=== PATIENT | female | born 1990 | race Caucasian/White ===

== ENCOUNTER 2020-04-03 16:33 | Outpatient (CLI) | payer BC, SELFPAY ==
--- NOTE | ~2020-04-03 | US_ITS ---
US OB /maternal detail DATE: 04/03/2020 17:33 INDICATION: screening for malformations TECHNIQUE: Real-time imaging and Doppler analysis COMPARISON: None FINDINGS: Live quiroga intrauterine gestation, fetus in longitudinal lie, breech presentation. The placenta is posterior. The lower placental margin is at the internal os. Subjectively normal amount of amniotic fluid. No evidence of cerebral ventriculomegaly. The cerebellum appears normal. Normal cervical nuchal fold. Four-chamber heart. heart rate of 141 bpm. The left and right ventricular outflow tracts are unremarkable. The kidneys appear normal; no hydronephrosis. Fluid is demonstrated in the stomach and ur inary bladder. The diaphragm is intact. spine appears normal. male external genitalia. Biparietal diameter 4.12 cm; 18 weeks 3 days Head circumference 15.44 cm; 18 weeks 3 days Abdominal circumference 13.39 cm; 18 weeks 6 days Femur length 2.95 cm; 19 weeks 1 day Composite age by Hadlock formula is 18 weeks 5 days +/- 1 week 2 days. PRESLEY by ultrasound is 08/30/2020, comparable to the PRESLEY determined by LMP. Estimated weight is 263.1 +/- 30 9.5 g. Head circumference/abdominal circumference is 1.15, within normal range of 1.09, 1.26 Femur length/head circumference is 19.08, slightly above normal range of 16.01-18.21. IMPRESSION: Relatively low-lying posterior placenta, which will likely resolve with advancement of th e Breech presentation Composite age by Hadlock formula is 18 weeks 5 days +/- 1 week 2 days; PRESLEY is 08/30/2020 Normal anatomy screen Reviewed, dictated and finalized at [facility]. Reviewed, dictated and finalized at [facility]. TECH IMPRESSION: Relatively low-lying posterior placenta, which will likely resolve with advancement of the Breech presentation Composite age by Hadlock formula is 18 weeks 5 days +/- 1 week 2 days; PRESLEY is Normal anatomy screen
== END 2020-04-03 16:34 | disposition home or self-care (01) ==
PROVIDERS: Visit Provider Obstetrics & Gynecology
DX: Z36.9 Encounter for antenatal screening, unspecified (principal); Z3A.18 18 weeks gestation of pregnancy
CPT/HCPCS: 76805

== ENCOUNTER 2020-05-22 10:52 | Outpatient (CLI) | payer BC, SELFPAY ==
--- NOTE | ~2020-05-22 | US_ITS ---
EXAMINATION: US OB follow up DATE: 05/22/2020 11:27 INDICATION: Assess placental position and growth, second trimester TECHNIQUE: Real-time ultrasound of the pelvis was performed. The interpreting radiologist was not pre sent for the study. COMPARISON: None. FINDINGS: There is a single living fetus in vertex presentation. The placenta is posterior and 6 mm f rom the internal cervical os. cardiac activity and movement are noted. heart rate i s 133 beats per minute (bpm). The amniotic fluid index is subjectively normal. The following biometric data were obtained: Biparietal diameter (BPD): 6.4 cm; head circumference (HC): 24.3 cm; abdominal circumference (AC): 22 .7 cm; femur length (FL): 4.8 cm. These measurements are concordant. Estimated weight is 974 g +/- 146 g, which correlates with the 81st percentile when 08/30/2020 is used as estimated date of delivery. As single measurements, these parameters are each equal to the following estimated gestational ages w ith ranges of +/- 2 standard deviations: BPD: 26 weeks 1 days +/- 2 weeks 1 days. HC: 26 weeks 3 days +/- 2 weeks 0 days. AC: 27 weeks 1 days +/- 2 weeks 1 days. FL: 26 weeks 2 days +/- 2 weeks 1 days. estimated gestational age based solely on measurements from this exam is 26 weeks 4 days +/- 1 weeks 6 days. IMPRESSION: 1. Single living fetus in vertex presentation. 2. Marginal placenta previa. 3. Estimated weight is 974 g +/- 146 g, which correlates with the 81st percentile when 08/30/2020 is used as estimated date of delivery. Reviewed, dictated and finalized at location [facility]. [place] RECEIVING CLERK IMPRESSION: 1. Single living fetus in vertex presentation. 2. Marginal placenta previa. 3. Estimated weight is 974 g +/- 146 g, which correlates with the 81st pe rcentile when 08/30/2020 is used as estimated date of delivery.
== END 2020-05-22 10:53 | disposition home or self-care (01) ==
PROVIDERS: Visit Provider Obstetrics & Gynecology
DX: Z36.9 Encounter for antenatal screening, unspecified (principal); Z3A.26 26 weeks gestation of pregnancy
CPT/HCPCS: 76816

== ENCOUNTER 2020-07-05 15:40 | Outpatient (CLI) | payer BC, SELFPAY ==
--- NOTE | ~2020-07-05 | US_ITS ---
EXAMINATION: US OB follow up DATE: 07/05/2020 16:47 INDICATION: Placenta previa. Assess growth and placental positioning. TECHNIQUE: Real-time ultrasound of the pelvis was performed. The interpreting radiologist was not pre sent for the study. COMPARISON: None. FINDINGS: There is a single living fetus in vertex presentation. The placenta is posterior and not low-lying w ith greater than >5 cm the obscured caudal margin of the placenta in the internal cervical os which abuts the head. The cervix measures >3.6 cm however the external cervical os is exclu ded from the [id number]. No funneling. heart rate is 147 beats per minute (bpm). The amnioti c fluid volume appears subjectively normal. The following biometric data were obtained: BPD: 8.1 cm -> 32 weeks 3 days Head circumference: 28.3 cm -> 31 weeks 0 days Abdominal circumference: 28.1 cm -> 32 weeks 1 days Femur length: 6.1 cm -> 31 weeks 4 days These measurements are concordant. Head circumference to abdominal circumference ratio: 1.01 (normal range 0.96-1.14). Estimated weight: 1858 g (+/-) 279 g. or 4 lbs. 2 oz. (+/-) 10 oz. IMPRESSION: 1. Single living fetus in vertex presentation with heart rate of 147 bpm. 2. Posterior placenta which does not appear low-lying. 3. Estimated weight is 35th percentile by Hadlock criteria when 08/30/2020 is used as the estimat ed date of delivery (PRESLEY). Please correlate with clinical information or earlier ultrasounds for most accurate PRELSEY. Reviewed, dictated and finalized at location [facility]. [place] HANDLER IMPRESSION: 1. Single living fetus in vertex presentation with heart rate of 147 bpm. 2. Posterior placenta which does not appear low-lying. 3. Estimated weight is 35th percentile by Hadlock criteria when 08/30/2020 is used as the estimated date of delivery (PRESLEY). Please correlate with clinical information or earlier ultrasounds for most accurate PRESLEY.
== END 2020-07-05 15:41 | disposition home or self-care (01) ==
PROVIDERS: Visit Provider Obstetrics & Gynecology
DX: O44.20 Partial placenta previa NOS or without hemorrhage, unspecified trimester (principal); Z3A.00 Weeks of gestation of pregnancy not specified
CPT/HCPCS: 76816

== ENCOUNTER 2020-08-18 06:10 | Inpatient (IN) | payer BC, SELFPAY ==
[2020-08-18] VITALS (179 sets, daily range): BP systolic 87–163; BP diastolic 43–136; PULSE 57–161; TEMP 36.6–37.7; O2SAT 92–100; BMI 34.3
[2020-08-18] MEDS: LACTATED RINGERS 1,000 ML 125 ML IV CONT ×2 (06:55→16:55)
[2020-08-18 07:10] LABS: Basophils Percent Auto 0.3 % (0.2-1.2); Eosinophils Percent Auto 0.5 % (0-4.4); Hematocrit 37.9 % (37.0-47.0); Immature Granulocyte Absolute 0.07 K/mm3 (0.00-0.031); Immature Granulocyte Percent A 0.8 % (0-0.5); Lymphocytes Absolute Auto 1.69 K/mm3 (0.9-3.2); Lymphocytes Percent Auto 19.5 % (18.3-44.2); Mean Corpuscular HGB Conc 34.3 g/dl (32-36); Mean Corpuscular Hemoglobin 30.4 pg (26-34); Mean Corpuscular Volume 88.6 fl (80-100); Mean Platelet Volume 11.3 fl (7.4-10.4); Monocytes Absolute Auto 0.5 K/mm3 (0.1-0.6); Monocytes Percent Auto 5.7 % (2.6-8.5); Neutrophils Absolute Auto 6.3 K/mm3 (1.3-6.7); Neutrophils Percent Auto 73.2 % (45.5-73.1); Platelet Count Result 217 k/mm3 (150-375); Red Blood Count 4.28 M/mm3 (4.2-5.4); Red Cell Distribution Width 12.8 % (11.5-14.5); White Blood Count 8.7 K/mm3 (4.5-10.0)
--- NOTE | 2020-08-18 07:12 | WPDANESEPP ---
Anes - Eval Pre Procedure Procedure: labor epidural Date/Time: 08/18/20 07:12 Preop Diagnosis: labor pain Pre Op Diagnosis: Induction of Labor Patient Data Age: 30 Gender: F Height: Weight: Last Vital Signs Pulse 88 08/18/20 07:00 BP 117/79 08/18/20 07:00 Allergies Allergy/AdvReac Type Severity Reaction Status Date / Time No Known Allergies Allergy Verified 08/18/20 07:07 Laboratory Tests 08/18/20 08/18/20 08/18/20 06:52 06:52 06:52 WBC 8.7 K/mm3 K/mm3 (4.5-10.0) RBC 4.28 M/mm3 M/mm3 (4.2-5.4) Hgb 13.0 g/dL g/dL (12.0-15.0) Hct 37.9 % % (37.0-47.0) MCV 88.6 fl fl (80-100) MCH 30.4 pg pg (26-34) MCHC 34.3 g/dl g/dl (32-36) RDW 12.8 % % (11.5-14.5) Plt Count 217 k/mm3 k/mm3 (150-375) MPV 11.3 fl H fl (7.4-10.4) Immature Gran % (Auto) 0.8 % H % (0-0.5) Neut % (Auto) 73.2 % H % (45.5-73.1) Lymph % (Auto) 19.5 % % (18.3-44.2) [place] % (Auto) 5.7 % % (2.6-8.5) Eos % (Auto) 0.5 % % (0-4.4) Baso % (Auto) 0.3 % % (0.2-1.2) Lymph # (Auto) 1.69 K/mm3 K/mm3 (0.9-3.2) [place] # (Auto) 0.5 K/mm3 K/mm3 (0.1-0.6) Eos # (Auto) 0.0 K/mm3 K/mm3 (0-0.3) Baso # (Auto) 0.0 K/mm3 K/mm3 (0.0-0.1) Abs Immat Gran (auto) 0.07 K/mm3 H K/mm3 (0.00-0.031) Absolute Neuts (auto) 6.3 K/mm3 K/mm3 (1.3-6.7) Absolute Nucleated RBC 0.0 K/mm3 K/mm3 (0.0-0.012) Nucleated RBC % 0.0 % % (0.0-0.2) Sodium Potassium Chloride Carbon Dioxide Anion Gap BUN Creatinine Estim Creat Clear Calc Estimated GFR Glucose Uric Acid Calcium Total Bilirubin AST ALT Alkaline Phosphatase Total Protein Albumin RPR Pending HIV 1&2 Ab/P24 Ag 4thGn Pending 08/18/20 06:52 WBC RBC Hgb Hct MCV MCH MCHC RDW Plt Count MPV Immature Gran % (Auto) Neut % (Auto) Lymph % (Auto) [place] % (Auto) Eos % (Auto) Baso % (Auto) Lymph # (Auto) [place] # (Auto) Eos # (Auto) Baso # (Auto) Abs Immat Gran (auto) Absolute Neuts (auto) Absolute Nucleated RBC Nucleated RBC % Sodium Pending Potassium Pending Chloride Pending Carbon Dioxide Pending Anion Gap Pending BUN Pending Creatinine Pending Estim Creat Clear Calc Pending Estimated GFR Pending Glucose Pending Uric Acid Pending Calcium Pending Total Bilirubin Pending AST Pending ALT Pending Alkaline Phosphatase Pending Total Protein Pending Albumin Pending RPR HIV 1&2 Ab/P24 Ag 4thGn Patient hx anesthesia problems: none Family hx anesthesia problems: none PMFSH Surgical History Surgical History 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
--- NOTE | 2020-08-18 07:15 | LDADM ---
This patient, Rose Mary yLnch, was admitted to Labor/Delivery/Recovery 103 on 08/18/20 at 06:10. Plans for labor, pain management and were discussed with patient. Patient/family oriented to hospital policies and general routines including ID bracelet, bed and alarms, visiting hours, pain management, procedures, bathroom and other care routines, personal items, smoking policy, room service/diet and guest tray routines, security routines, call light, and visiting hours. Patient/Family are encouraged to report perceived risks to care and to ask questions if they do not understand what they are told or what they should do. See OBIX for further documentation.
[2020-08-18 07:18] LABS: Albumin Level 3.6 g/dL (3.5-5.1); Alkaline Phosphatase 190 U/L (38-126); Anion Gap 10 mmol/L (8-16); Aspartate Amino Transferase 45 U/L (14-36); Bilirubin,Total 0.2 mg/dL (0.2-1.3); Blood Urea Nitrogen 12 mg/dL (7-17); Calcium 8.8 mg/dL (8.4-10.2); Carbon Dioxide 20 mmol/L (22-30); Chloride 107 mmol/L (98-107); Estimated Glomerular Filt Rate > 60; Glucose 136 mg/dL (65-105); Potassium 3.4 mmol/L (3.4-5.0); Sodium 137 mmol/L (137-145); Uric Acid 3.5 mg/dL (2.5-7.5)
[2020-08-18 07:26] LABS: Alanine Aminotransferase 49 U/L (4-35)
[2020-08-18] MEDS: OXYTOCIN 30 UNITS/NS 500 ML 30 UNITS/500 ML BAG IV CONT (07:36)
[2020-08-18 07:58] LABS: HIV 1/2 Ab P24 Ag Result Negative (Negative)
--- NOTE | 2020-08-18 08:04 | PM.IMHP ---
H&P: HPI History of Present Illness Date/Time: 08/18/20 08:04 30 y/o G1 at 38+2 with gestational HTN here for induction of labor. No RIVERA/visual changes. 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 Family History Family History Mother Breast cancer Hypertension Other Breast cancer Father Hypertension Hyperlipidemia Social History Social History Smoking status: Never smoker Alcohol intake: never Substance use: never Gender identity (if verbalized by the patient): Female Spiritual care concerns: No Meds Home Medications and Allergies Home Medications Medication Instructions Recorded Confirmed Type PNV cmb#95-ferrous fumarate-FA 1 tablet PO DAILY 08/18/20 08/18/20 History [] Allergies Allergy/AdvReac Type Severity Reaction Status Date / Time No Known Allergies Allergy Verified 08/18/20 07:07 Vital Signs Vital Signs - 24 hr 08/18/20 06:36 08/18/20 06:53 08/18/20 07:00 Pulse Rate 102 H 94 88 Blood Pressure 139/82 126/85 117/79 08/18/20 07:30 08/18/20 08:00 Pulse Rate 87 86 Blood Pressure 119/73 113/74 Exam Const: General: healthy appearing, no acute distress, alert and awake Resp: Auscultation: clear to auscultation bilaterally Cardio: Rate: regular rate Rhythm: regular rhythm GI: Inspection: non-distended GI Palp: Yes Soft to palpation and No Tenderness to palpation present (GI) : Manual OB Exam: dilated 1 cm, effaced 25%, station -2 and other (soft/posterior) Extrem: General: no calf tenderness and edema bilateral (1+) Psych: Mental Status: mental status grossly normal H&P: Results Labs Labs: Short CBC 08/18/20 Range/Units 06:52 WBC 8.7 (4.5-10.0) K/mm3 Hgb 13.0 (12.0-15.0) g/dL Hct 37.9 (37.0-47.0) % Plt Count 217 (150-375) k/mm3 BMP 08/18/20 06:52 Sodium 137 Potassium 3.4 Chloride 107 Carbon Dioxide 20 L BUN 12 Creatinine 0.60 L Glucose 136 H Calcium 8.8 Liver Function 08/18/20 Range/Units 06:52 Total Bilirubin 0.2 (0.2-1.3) mg/dL AST 45 H (14-36) U/L ALT 49 H (4-35) U/L Alkaline Phosphatase 190 H (38-126) U/L Albumin 3.6 (3.5-5.1) g/dL Assessment and Plan Assessment and plan (1) Gestational hypertension: Code(s): O13.9 - Gestational [-induced] hypertension without significant proteinuria, unspecified trimester Status: Acute Assessment and Plan: Asymptomatic. BP normal to mildly elevated. Labs all normal except mildly elevated LFTs (not diagnostic for pre-E). Observe BP and symptoms closely. Continue pitocin. GBS negative
--- NOTE | 2020-08-18 11:56 | PM.OBPNLAB ---
Pain Control Date/time seen: 08/18/20 11:56 Pain control: tolerating well Pelvic Exam Dilation (cm): 3 Effacement (%): 50 station: -2 Amniotic membrane status: Ruptured Comments: AROM with clear fluid Contractions Monitor mode: Internal (IUPC just placed) Contraction frequency: 2 Contraction intensity: Mild Status status: Category ll Assessment and Plan Assessment: induction ongoing Plan: continuous present management
[2020-08-18 12:01] LABS: Rapid Plasma Reagin Non-Reactive (NonReactive)
--- NOTE | 2020-08-18 15:45 | PM.OBPNLAB ---
Pain Control Date/time seen: 08/18/20 15:45 Pain control: epidural Pelvic Exam Dilation (cm): 4 Effacement (%): 95 station: -1 Amniotic membrane status: Ruptured Contractions Monitor mode: Internal (IUPC just placed) Contraction frequency: 4 Contraction pattern: Regular Contraction intensity: Moderate Intrauterine tone measurement: 190 (at highest prior to pitocin shut off) Status status: Category ll Assessment and Plan Pitocin rate (mU/min): 0 Assessment: induction ongoing Plan: other (Restart pitocin now. Watch FHT closely)
[2020-08-18] MEDS: fentaNYL CITRATE INJ (*CRX) 100 MCG/2 ML VIAL 50 MCG IV PUSH (19:04)
[2020-08-19] VITALS (62 sets, daily range): BP systolic 99–145; BP diastolic 53–108; PULSE 69–146; RESP 16–20; TEMP 36.6–38.4; O2SAT 95–100
[2020-08-19] MEDS: AMPICILLIN 2 GM/NS 100 ML 2 GM/100 ML BAG IVPB (01:15)
[2020-08-19] MEDS: LACTATED RINGERS 1,000 ML 125 ML IV CONT (01:40)
--- NOTE | 2020-08-19 02:12 | WPDHPUPDATE1 ---
History and Physical Update Update Date/Time: 08/19/20 02:12 History and Physical has been reviewed, including an updated exam of the patient. There are NO changes in the patient's condition. Risks, benefits, and alternatives have been discussed and questions answered. Patient agrees to proceed with procedure. She made it to complete dilation and pushed for 2 1/2 hours with little descent of head to -1 station. We had discussed in office and again this morning that operative vaginal delivery is not a good option due to concern of narrow pelvis. She agrees to proceed with primary c section due to arrest of descent.
[2020-08-19] MEDS: ceFAZolin 2 GM/D5W 50 ML 2 GM/50 ML BAG IVPB (02:14)
--- NOTE | 2020-08-19 02:15 | P.OP_ITS ---
Procedure Note - Detailed Date of procedure: 08/19/20 Pre-op diagnosis: Induction of Labor Arrest of descent Post-op diagnosis: same Procedure performed: Primary LTCS Description of procedure: She was taken to the operating room where her epidural anesthesia was found be adequate. She was prepared and draped in the normal sterile fashion in the dorsal supine position with a leftward tilt. A Pfannenstiel skin incision was made with a scalpel and extended to the underlying layer of fascia. The fascia was incised in the midline with a scalpel and extended laterally with the Quintanilla scissors. The underlying rectus muscles were dissected off bluntly and sharply. The rectus muscles were in the midline, and the peritoneum was entered sharply. Peritoneal incision was extended inferiorly and superiorly with good visualization of the bladder. The bladder blade was inserted. The vesicouterine peritoneum was tented up and entered sharply with Metzenbaum scissors. The bladder flap was created sharply. The bladder blade was reinserted. The lower uterine segment was incised in a transverse fashion with the scalpel. The incision was digitally stretched in a cephalocaudal direction. The infant's head was delivered atraumatically. A nuchal cord x1 was reduced easily. The shoulders and body were delivered easily. The cord was clamped and cut. The was passed to the waiting nurse. Cord gas and cord blood was obtained. The placenta was manually extracted. The uterus was exteriorized and cleared of all clots and debris. The uterine incision was closed using 0 Vicryl in a running l ocked fashion. The uterus was then returned to the abdomen. The gutters were cleared of all clots and debris. The uterine incision was reinspected, and there was 1 bleeding point in the middle of the incision. That was easily controlled with an 0 Vicryl [id number] suture. The rectus muscles were then inspected. Any bleeding points were cauterized. Rectus muscles were reapproximated using an 0 Vicryl [id number] suture. The fascia was then closed using 0 Vicryl in a running fashion. The subcutaneous tissue was irrigated. Any bleeding points were cauterized. The skin was closed using Insorb absorbable leighton. She tolerated the procedure well. Sponge, lap, needle, and instrument counts were correct x2. She was taken to the recovery area in stable condition. Anesthesia: epidural Surgeon: Audra Milelr MD Estimated blood loss (mL): 490 Drains: Yes ([place]) Pathology: yes Complications: No immediate complications Condition: stable Disposition: floor Findings: Male infant, cephalic; Apgars 9/9; weight 6# 15oz; nuchal cord X 1; normal uterus, tubes, ovaries
--- NOTE | 2020-08-19 02:33 | WPDANESEPP ---
Anes - Eval Pre Procedure Procedure: Operation Date: 08/19/20 02:15 Proposed Procedures p Section - Audra Miller MD Date/Time: 08/19/20 02:33 Surgeon: karel Pre Op Diagnosis: Induction of Labor Patient Data Age: 30 Gender: F Height: 1.6 m Weight: 88 kg Last Vital Signs Temp 37.7 C H 08/18/20 22:35 Pulse 96 08/19/20 02:10 BP 108/58 L 08/19/20 02:10 Pulse Ox 99 08/18/20 22:57 Allergies Allergy/AdvReac Type Severity Reaction Status Date / Time No Known Allergies Allergy Verified 08/18/20 07:07 Home Medications Medication Instructions Recorded Confirmed Type PNV cmb#95-ferrous fumarate-FA 1 tablet PO DAILY 08/18/20 08/18/20 History [] Laboratory Tests 08/18/20 08/18/20 08/18/20 06:52 06:52 06:52 WBC 8.7 K/mm3 K/mm3 (4.5-10.0) RBC 4.28 M/mm3 M/mm3 (4.2-5.4) Hgb 13.0 g/dL g/dL (12.0-15.0) Hct 37.9 % % (37.0-47.0) MCV 88.6 fl fl (80-100) MCH 30.4 pg pg (26-34) MCHC 34.3 g/dl g/dl (32-36) RDW 12.8 % % (11.5-14.5) Plt Count 217 k/mm3 k/mm3 (150-375) MPV 11.3 fl H fl (7.4-10.4) Immature Gran % (Auto) 0.8 % H % (0-0.5) Neut % (Auto) 73.2 % H % (45.5-73.1) Lymph % (Auto) 19.5 % % (18.3-44.2) [place] % (Auto) 5.7 % % (2.6-8.5) Eos % (Auto) 0.5 % % (0-4.4) Baso % (Auto) 0.3 % % (0.2-1.2) Lymph # (Auto) 1.69 K/mm3 K/mm3 (0.9-3.2) [place] # (Auto) 0.5 K/mm3 K/mm3 (0.1-0.6) Eos # (Auto) 0.0 K/mm3 K/mm3 (0-0.3) Baso # (Auto) 0.0 K/mm3 K/mm3 (0.0-0.1) Abs Immat Gran (auto) 0.07 K/mm3 H K/mm3 (0.00-0.031) Absolute Neuts (auto) 6.3 K/mm3 K/mm3 (1.3-6.7) Absolute Nucleated RBC 0.0 K/mm3 K/mm3 (0.0-0.012) Nucleated RBC % 0.0 % % (0.0-0.2) Sodium Potassium Chloride Carbon Dioxide Anion Gap BUN Creatinine Estim Creat Clear Calc Estimated GFR Glucose Uric Acid Calcium Total Bilirubin AST ALT Alkaline Phosphatase Total Protein Albumin RPR Non-reactive (NonReactive) HIV 1&2 Ab/P24 Ag 4thGn Negative (Negative) Blood Type Antibody Screen 08/18/20 08/18/20 06:52 06:52 WBC RBC Hgb Hct MCV MCH MCHC RDW Plt Count MPV Immature Gran % (Auto) Neut % (Auto) Lymph % (Auto) [place] % (Auto) Eos % (Auto) Baso % (Auto) Lymph # (Auto) [place] # (Auto) Eos # (Auto) Baso # (Auto) Abs Immat Gran (auto) Absolute Neuts (auto) Absolute Nucleated RBC Nucleated RBC % Sodium 137 mmol/L mmol/L (137-145) Potassium 3.4 mmol/L mmol/L (3.4-5.0) Chloride 107 mmol/L mmol/L (98-107) Carbon Dioxide 20 mmol/L L mmol/L (22-30) Anion Gap 10 mmol/L mmol/L (8-16) BUN 12 mg/dL mg/dL (7-17) Creatinine 0.60 mg/dL L mg/dL (0.7-1.0) Estim Creat Clear Calc Not Reportable Estimated GFR > 60 (59 - ) Glucose 136 mg/dL H mg/dL (65-105) Uric Acid 3.5 mg/dL mg/dL (2.5-7.5) Calcium 8.8 mg/dL mg/dL (8.4-10.2) Total Bilirubin 0.2 mg/dL mg/dL (0.2-1.3) AST 45 U/L H U/L (14-36) ALT 49 U/L H U/L (4-35) Alkaline Phosphatase 190 U/L H U/L (38-126) Total Protein 7.0 g/dL g/dL (6.3-8.2) Albumin 3.6 g/dL g/dL (3.5-5.1) RPR HIV 1&2 Ab/P24 Ag 4thGn Blood Type A Positive Antibody Screen
[2020-08-19] MEDS: OXYTOCIN 30 UNITS/NS 500 ML 30 UNITS/500 ML BAG 125 UNITS IV CONT (05:16)
[2020-08-19] MEDS: KETOROLAC 30 MG/ML VIAL (*BKC) IV PUSH (05:16)
--- NOTE | 2020-08-19 05:33 | PC.NURSE ---
Patient transferred to post room #286 via stretcher. Support person present. Oriented to unit and room, and information board. Patient verbalizes understanding.
--- NOTE | 2020-08-19 08:00 | PC.NURSE ---
Pt introductions made and plan of care discussed per post op c section, pain management, breast feeding, daily care activities. welcome packet reviewed and discussed. PT verbalized understanding of such care.
[2020-08-19] MEDS: SIMETHICONE 80 MG TAB.CHEW PO ×2 (09:57→14:56)
[2020-08-19] MEDS: DOCUSATE SODIUM 100 MG CAPSULE PO ×2 (09:57→20:43)
[2020-08-19] MEDS: HYDROcodone/acetaminophen (*CRX) 5-325 MG TABLET 1 TAB PO ×3 (09:58→20:44)
[2020-08-19] MEDS: MULTIVIT/MIN/PREN/FOL AC/IRON TABLET 1 TAB PO (09:58)
--- NOTE | 2020-08-19 10:00 | PC.NURSE ---
PT received instructions per policy post c section via one to one discussion and mom baby care guide book. no barriers to learning observed. pt verbalized understanding of such care.
[2020-08-19] MEDS: DEXTROSE 5%/0.45% SOD CHL 1,000 ML 125 ML IV CONT (10:30)
[2020-08-19] MEDS: WITCH HAZEL 40 PADS 1 PAD TOPICAL (14:54)
[2020-08-19] MEDS: BENZOCAINE 20% AER SPR (*SP) 56 GM CAN 1 SPRAY TOPICAL (14:54)
[2020-08-19] MEDS: LANOLIN (LANSINOH) 7.5 GM CREAM 1 APPLIC TOPICAL (14:56)
[2020-08-19] MEDS: IBUPROFEN 600 MG TABLET PO ×2 (14:56→20:43)
[2020-08-19] MEDS: LORATADINE 10 MG TABLET PO (14:57)
--- NOTE | 2020-08-19 20:24 | PC.NURSE ---
1909: Patient, spouse and baby taken to employee break room due to Code [place] 1944: Patient, spouse and baby returned to room 286 without incident after ALL Clear was called.
[2020-08-20] VITALS: BP 98/57; PULSE 72; RESP 18; TEMP 36.4; O2SAT 97
[2020-08-20] MEDS: IBUPROFEN 600 MG TABLET PO ×4 (03:46→23:24)
[2020-08-20 05:03] LABS: Basophils Percent Auto 0.3 % (0.2-1.2); Eosinophils Absolute Auto 0.1 K/mm3 (0-0.3); Eosinophils Percent Auto 0.8 % (0-4.4); Hematocrit 31.1 % (37.0-47.0); Hemoglobin 10.2 g/dL (12.0-15.0); Immature Granulocyte Absolute 0.09 K/mm3 (0.00-0.031); Immature Granulocyte Percent A 0.7 % (0-0.5); Lymphocytes Absolute Auto 2.08 K/mm3 (0.9-3.2); Lymphocytes Percent Auto 15.6 % (18.3-44.2); Mean Corpuscular HGB Conc 32.8 g/dl (32-36); Mean Corpuscular Hemoglobin 29.9 pg (26-34); Mean Corpuscular Volume 91.2 fl (80-100); Mean Platelet Volume 11.3 fl (7.4-10.4); Monocytes Percent Auto 7.2 % (2.6-8.5); Neutrophils Absolute Auto 10.1 K/mm3 (1.3-6.7); Neutrophils Percent Auto 75.4 % (45.5-73.1); Platelet Count Result 177 k/mm3 (150-375); Red Blood Count 3.41 M/mm3 (4.2-5.4); Red Cell Distribution Width 13.6 % (11.5-14.5); White Blood Count 13.4 K/mm3 (4.5-10.0)
--- NOTE | 2020-08-20 07:00 | PC.NURSE ---
PT introductions made and plan of care discussed per post , pain management, breast feeding. daily care activities. PT Verbalized understanding of such care.
[2020-08-20 12:00] VITALS: BP 102/60; PULSE 84; RESP 18; RESP 20; TEMP 37; O2SAT 98
[2020-08-20] MEDS: ACETAMINOPHEN 325 MG TABLET 650 MG PO ×2 (12:05→17:40)
[2020-08-20] MEDS: SIMETHICONE 80 MG TAB.CHEW PO ×2 (12:06→17:40)
[2020-08-20] MEDS: MULTIVIT/MIN/PREN/FOL AC/IRON TABLET 1 TAB PO (12:07)
[2020-08-20] MEDS: DOCUSATE SODIUM 100 MG CAPSULE PO ×2 (12:07→17:39)
[2020-08-20 15:00] VITALS: BP 104/68; PULSE 80; RESP 18; TEMP 36.9; O2SAT 98
--- NOTE | 2020-08-20 16:37 | WPDANLDPN2 ---
Anes-Prog Note L&D Date/Time: 08/20/20 16:37 Comfortable throughout: labor and section Neuraxial method: epidural Epidural/Spinal procedure site: clean & non-tender Neuro status: Neuro function grossly intact. Cardiovascular status: normal Respiratory status: normal Airway patency: baseline Mental status: baseline Post-Op hydration status: normal Vital Signs: Last Vital Signs Temp 37.0 C 08/20/20 12:00 Pulse 84 08/20/20 12:00 Resp 20 08/20/20 12:00 BP 102/60 08/20/20 12:00 Pulse Ox 98 08/20/20 12:00 Pain score (VAS): 0/10. Patient resting in bed at time of assessment, appears comfortable. Support person at bedside. I/O: Intake & Output 08/20/20 08/20/20 08/20/20 07:59 15:59 23:59 Intake Total 900 600 Output Total 1400 500 Balance -500 100 Post-procedural complaints: none Patient feedback: Patient satisfied with anesthetic care.
--- NOTE | 2020-08-20 16:37 | WPDANLDNPN2 ---
Anes-Prog Note L&D-Neuraxial Date/Time: 08/20/20 16:37 Neuraxial medications: epidural PF morphine Opiod-related complaints: none Patient feedback: Patient satisfied with post-operative pain management.
[2020-08-20 18:46] VITALS: BP 119/66; PULSE 78; RESP 16; TEMP 37.2
[2020-08-21] MEDS: ACETAMINOPHEN 325 MG TABLET 650 MG PO ×2 (02:24→09:12)
[2020-08-21] MEDS: IBUPROFEN 600 MG TABLET PO ×2 (05:23→12:51)
--- NOTE | 2020-08-21 07:45 | PC.NURSE ---
Mother called out for assist with feeding. Consulted with patient, mother reports has fed well since , last night he became sleepy and has struggled with waking to feed since. It has no been 6 hours from last feeding. Mother has nipple discomfort with latch during first part of the feeding that quickly resolves. Reviewed nipple care of lanolin, warm compresses several times per day. Reviewed feeding cues, frequencies, duration of feedings, feeding elimination flow sheet, and signs of adequate intake. Demonstrated stimulation techniques to wake infant for feeding. Assisted with infant to breast. Reviewed positioning/alignment in football, holding breast in C hold and guided asymmetrical latch on. Several minutes of stimulation to wake . Small amounts of formula to tongue to assist with waking and illicit feeding cues. Infant was able to latch after several attempts. nursed eagerly, with steady draws and occasional swallowing noted for bursts followed by long pausing. Reviewed signs of a correct latch, effective nursing and suck swallow ratio. Infant was able to maintain latch. Mother reported tenderness at times, had slipped to shallow latch. Demonstrated how to adjust latch more deeply while feeding. Mother quickly reports she can feel is latched more deeply and has minimal tenderness. Advised to stimulate infant while feeding to keep awake and nursing effectively for increased stimulation and increased intake. Instructed mother to call out for RN assistance if she is unable to latch for feeding or she has discomfort with nursing. Discussed infant weight loss and jaundice levels. ICP will discuss after evaluation.
--- NOTE | 2020-08-21 08:15 | P.PNOB_ITS ---
OB - PN: Subj Subjective Date/time seen: 08/21/20 08:15 Patient comments: no complaints, pain well controlled, tolerating diet, flatus present and other (Ambulating and voiding without problems. Lochia similar to menses) baby status: doing well OB - PN: Obj Data Labs CBC & Chem 7: 08/20/20 03:51 08/18/20 06:52 OB - PN A/P Plan day: 2 (s/p C section, doing well) Plan: routine care and discharge home (Follow up in 1 week) Time Spent With Patient Time: Total time spent is greater than 50% in coordination of care (as document ed) at patient's floor/unit and/or counseling patient: Time with patient: less than 15 minutes Exam Const: General: no acute distress Resp: Auscultation: clear to auscultation bilaterally Cardio: Rate: regular rate Rhythm: regular rhythm GI: Inspection: non-distended, incision (Intact without erythema, drainage, or induration) and other (Fundus firm and nontender below umbilicus) GI Palp: Yes abdominal tenderness (appropriate) and Yes Soft to palpation Extrem: General: no edema
--- NOTE | 2020-08-21 08:15 | P.DS_ITS ---
DS: Admitting Diagnosis Admitting Diagnosis Admitting Diagnosis: Gestational hypertension OB - DS: Summary OB Procedures : PIH Mgmt OB Procedures Intrapartum: OB Procedures: : None Peripartum Data Infant Delivery Method: Section Procedures: Procedures Operation Date: 08/19/20 02:15 Actual Procedures Side Surgeon p Section Audra Miller MD complications: none Status at Discharge Functional status at discharge: independent ambulation Overall status at discharge: patient is progressing back to baseline Time Spent with Patient Time attestation: Total time spent providing and/or coordinating discharge services: Time spent: Less than 30 minutes DS: Data Data Completed and Pending Pending studies at discharge: Pending at discharge 08/19/20 03:38 Surgical [PTH] Routine Discharge Plan Discharge Attending physician on discharge: Audra Miller Discharging Clinician: Audra Miller Patient Disposition: Home, Self-Care Activity: may shower and pelvic rest Diet: as tolerated Wound Care Instructions: incision open to air Patient Instructions: Antibiotic Form Stand Alone Forms: General Discharge Information Follow-up/Referrals: Audra Miller MD [Physician] - 1 Week Discharge Medications: New hydrocodone-acetaminophen 5-325 mg Tablet 1 tablet PO Q4H PRN (Reason: Moderate Pain (4-6)) Qty: 30 RF: 0 ibuprofen 600 mg Tablet 600 mg PO Q6H PRN (Reason: Cramping) Qty: 60 RF: 0 Continued PNV [id number] fumarate-FA [] 28 mg iron- 800 mcg Tablet 1 tablet PO DAILY RF: 0 Date of admission: 08/18/20 06:10 Primary Care Provider: PHYSICIAN,BRAILLE OPERATOR Admitting Provider: Audra Miller Attending physician on admission: Audra Miller Condition: Stable
[2020-08-21 08:30] VITALS: BP 122/76; PULSE 73; RESP 18; TEMP 36.7; O2SAT 95
--- NOTE | 2020-08-21 09:00 | PC.NURSE ---
Patient viewed the discharge video Mother & Baby Care, The First Two Weeks . Patient was given the opportunity and encouraged to ask questions. Patient verbalized understanding of information shared and has been given the mother/baby guide for home reference.
[2020-08-21] MEDS: DOCUSATE SODIUM 100 MG CAPSULE PO (09:11)
[2020-08-21] MEDS: MULTIVIT/MIN/PREN/FOL AC/IRON TABLET 1 TAB PO (09:11)
--- NOTE | 2020-08-21 09:30 | PC.NURSE ---
Mother called out for latch check. Mother has independently latched in football position. Infant nursed eagerly, with steady draws and occasional swallowing noted followed with long pausing. Parents are stimulating infant to keep awake and nursing. Reviewed signs of a correct latch, effective nursing and suck swallow ratio. was able to maintain latch. Mother reports ICP discussed 15mls after each feeding.
--- NOTE | 2020-08-21 11:15 | PC.NURSE ---
Mother called out for assist with feeding. Demonstrated stimulation techniques to wake for feeding. Assisted with infant to breast. Reviewed positioning/alignment in football, holding breast in C hold and guided asymmetrical latch on. is struggling to latch as right nipple has a low profile and will draw in at times. Suggested to switch to cross cradle Several attempts before was able to latch correctly. Once on nursed eagerly, with steady draws and occasional swallowing noted. required constant stimulation to keep awake and nursing effectively. Reviewed signs of a correct latch, effective nursing and suck swallow ratio. Infant was able to maintain latch. Demonstrated how to adjust latch more deeply while feeding. Mother quickly reports she can feel is latched more deeply and has minimal tenderness. Suggested to stimulate while feeding to keep infant awake and nursing effectively for increased stimulation and increased intake. Instructed mother to call out for RN assistance if she is unable to latch for feeding or she has discomfort with nursing
--- NOTE | 2020-08-21 12:38 | PC.NURSE ---
Mother wishes instructions on her Medela pump for home use. Instructions given on breast pump care and usage, pumping schedule, nipple care, and collection and storage of breast milk. Encouraged [id number], breast massage and manual expression to stimulate supply. Assessed patient for correct flange size, placement and draw. Patient verbalizes and demonstrates understanding of instructions.
--- NOTE | 2020-08-21 12:39 | PC.NURSE ---
Observed mother is able to independently latch with appropriate positioning/alignment. She denies any nipple discomfort, is feeding as required and waking infant to feed if needed. has had several effective feedings in the past 24 hours, and is currently meeting outcomes for weight, output, jaundice and feeding frequencies. ICP has suggested mother supplement 15mls after each feeding due to 8% weight loss and increasing jaundice. Mother states she feels confident to continue effective with supplementation at home. Reviewed transition to breast milk, signs of adequate intake, and engorgement/relief. Instructed to call ICP if intake/output less than required. Reviewed regular medications mother is taking. Information provided per Alexandrea. Reviewed community resources on the [facility] website and in the Mom/Baby guide. Information on outpatient services provided. Mother has no further questions at this time. Advised to continue with supplementation and pumping until seen by follow up.
[2020-08-23 10:53] VITALS: BP 134/89; PULSE 87; RESP 20; TEMP 37; O2SAT 99
== END 2020-08-21 13:56 | disposition home or self-care (01) | DRG 787 ==
LOC: ANHLDR 06:13 → ANHOB2 08-19 06:12
PROVIDERS: Admitting Provider Obstetrics & Gynecology; Visit Provider Obstetrics & Gynecology
PROC: 10D00Z1 Extraction of Products of Conception, Low, Open Approach (ICD-10-PCS; CPT 59514; principal; 2020-08-19 02:15)
DX: O13.4 Gestational [pregnancy-induced] hypertension without significant proteinuria, complicating childbirth (principal); O75.2 Pyrexia during labor, not elsewhere classified; Z37.0 Single live birth; Z3A.38 38 weeks gestation of pregnancy; O36.8330 Maternal care for abnormalities of the fetal heart rate or rhythm, third trimester, not applicable or unspecified; O32.4XX0 Maternal care for high head at term, not applicable or unspecified; O69.81X0 Labor and delivery complicated by cord around neck, without compression, not applicable or unspecified
CPT/HCPCS: 36415; 80053; 84550; 85025; 86592; 86703; 86850; 86900; 86901; 88307; A9270; G0432; J0131; J0290; J0690; J1885; J2274; J2405; J2590; J2795; J3010; J7120

== ENCOUNTER 2021-01-29 11:09 | Outpatient (RCR) | payer BC, SELFPAY ==
--- NOTE | 2021-01-29 12:30 | PC.NURSE ---
PT SEEN ON 01/29/2021 IN 1020 OUT 1110 HISTORY: Pt. delivered at [facility] at term. had no complications after delivery. Mother had no complications after delivery. Infant is now 5 + months old. Infant appears to be well cared for. has been seen by ICP as scheduled. Infant last seen by ICP at 4 months. Mother reports: Currently at 8 wets per day and 3-4 seedy stools per day. Mother states she had called OB for prescriptions for what she believed was thrush, she had reddened nipples and areolas with dry patchy areas and cracking. She had pain with feeding and pumping. Script was called in and mother completed, she continues having pain with feeding and pumping. Infant had a tongue and upper lip release done at 3 months, infant continues to have issues maintaining deep latch. Mother states she has always had some tenderness with feeding, she began pumping a few weeks ago to store milk before returning to work. Infant has been seen by ICP as schedule with adequate weight gain per mother. Mother wishes: Improve pain with feeding and pumping and heal nipple and areola tissue. Observation: Tongue is able to move freely past gum ridge, both lips flange easily. Mother has everted nipples with skin intact, redness, healed cracked areas (on tip and at base of nipple) and dryness to entire areola. Observed mother putting infant to breast. Mother puts infant to breast in cradle positioning, able to latch correctly. Reviewed signs of a correct latch, effective nursing and suck swallow ratio. nursed eagerly, with steady draws and frequent swallowing noted. Reviewed the difference of effective vs ineffective nursing. Mother reports tenderness. Infant is very active while at breast with pulling back releasing latch and will return to breast with self latch. Demonstrated how to adjust latch more deeply while feeding and to give gentle resistance not allowing to pull back while feeding. is a typical 5 month old with looking around and responding to noise. Mother reports she can feel change in latch when she corrects to a deeper latch. Discussed that infant is in a feeding pattern that may not be able to be corrected. He has nursed shallow since , mother can only make attempts to correct shallow latch and not allow to pull back while feeding. Nipple care reviewed of lanolin after feedings, warm compresses several times per day as needed. Observed mother pumping. Mother has several flange sizes she is using and is using two different pumps. Mother is using the 15mm flange, suggested mother use the 21mm and decrease draw on pump. Reviewed that she may have initiated the dry skin and cracking with the incorrect size and draw from pumping with incorrect flange size. Suggested mother use one pump and one flange size for several days along with good nipple care to allow nipples and areolas to heal. Mother states she does feel redness began with increased pumping. PLAN: Mother will follow above plan to allow nipples to heal and assist maintaining deep latch. Mother will call with further questions or concerns. Follow up phone call scheduled for Friday 02/02- at noon.
== END 2021-02-13 13:44 | disposition home or self-care (01) ==
LOC: ANHOBOP 11:09
PROVIDERS: Visit Provider Obstetrics & Gynecology
DX: Z46.1 Encounter for fitting and adjustment of hearing aid (principal)
CPT/HCPCS: 99212; G0463